=== PATIENT | female | born 1955 | race Caucasian/White ===

== ENCOUNTER 2024-11-24 12:20 | Inpatient (IN) | payer MEDICARE, OTHER, SELFPAY ==
[2024-11-24] VITALS (25 sets, daily range): BP systolic 124–167; BP diastolic 63–97; PULSE 74–96; RESP 16; TEMP 36.5–37; O2SAT 91–100; BMI 23.0
--- NOTE | 2024-11-24 12:47 | ED.LOWEXIN ---
HPI - Extremity Injury (Lower) General Chief Complaint: Extremity Injury, Lower Stated Complaint: GLF - R hip pain, no deformities, no thinners Time Seen by Provider: 11/24/24 12:47 Source: patient Mode of arrival: EMS History of Present Illness HPI Narrative: Patient is a healthy 69-year-old female who presents today with left hip pain. She reports that she missed small uneven this in the ground at a store and fell directly on her left hip. She tried to catch herself with her hands but mostly her left hip parts. No head injury no loss of consciousness no neck pain. She is not on anti platelet or anticoagulation medications. Related Data Allergies Allergy/AdvReac Type Severity Reaction Status Date / Time Penicillins Allergy Severe Abdominal Verified 11/24/24 12:31 Pain Sulfa (Sulfonamide Allergy Severe Rash Verified 11/24/24 12:31 Antibiotics) Patient History Social History Smoking Status: Never smoker Smoking Status: Never smoker Exam Initial Vital Signs Initial Vital Signs: Vital Signs Temperature 98.6 F 11/24/24 12:30 Pulse Rate 81 11/24/24 12:30 Respiratory Rate 16 11/24/24 12:30 Blood Pressure 150/84 H 11/24/24 12:30 Pulse Oximetry 98 11/24/24 12:30 Oxygen Delivery Method Room Air 11/24/24 12:30 GENERAL: Alert well-appearing 69-year-old female and in no acute distress. HEENT: Head atraumatic,EOMI, pupils reactive, face symmetric, moist mucous membranes CARDIOVASCULAR: Regular rate and rhythm without murmurs, rubs or gallops. RESPIRATORY: Breath sounds equal bilaterally, no wheezes rales or rhonchi. ABDOMEN: Soft, nontender. Normoactive bowel sounds all 4 quadrants. No guarding or rebound. EXTREMITIES: Normal range of motion, no clubbing or edema. Neurovascularly intact Left hip tender with flexion legs are of equal length distal pedal pulse intact NEUROLOGICAL: Alert and oriented x4. Neurovascularly intact SKIN: Warm, dry, no laceration, no petechiae, no rashes or lesions. Course Orders Ordered: ED Orders 11/24/24 12:54 XR hip w pel LT 2V Stat 11/24/24 13:00 CBC Auto Diff [Complete Blood Count AUTO DIFF] Stat CMP [Comprehensive Metabolic Panel] Stat 11/24/24 13:47 CT pelvis wo con Stat 11/25/24 11:15 XR C-arm up to 60 min Stat Discontinued Medications Hydromorphone HCl (Hydromorphone Hcl 0.5 Mg/0.5 Ml Syringe) 0.5 mg IV NOW ONE Stop: 11/24/24 15:16 Last Admin: 11/24/24 15:40 Dose: 0.5 mg Vital Signs Vital signs: Vital Signs - 8 hr 11/24/24 12:30 11/24/24 12:47 11/24/24 12:47 Temperature 98.6 F 97.7 F Pulse Rate 81 78 Respiratory Rate 16 16 Blood Pressure 150/84 H 160/90 H Pulse Oximetry 98 96 Oxygen Delivery Method Room Air Room Air MDM - Extremity Injury (Lower) Lab Data 11/24/24 13:00 11/24/24 13:00 Labs: Lab Results 11/24/24 Range/Units 13:00 WBC 6.6 (4.5-11.0) X10^3/uL RBC 4.66 (4.0-5.2) X10^6/uL Hgb 14.1 (12.0-16.0) g/dL Hct 41.3 (36-46) % MCV 88.5 (80-100) fL MCH 30.4 (26-34) PG MCHC 34.3 (30-36) % RDW 13.3 (11.6-14.8) % Plt Count 221 (150-400) X10^3/uL Neut % (Auto) 65.0 (50-75) % Lymph % (Auto) 23.2 L (25-40) % [place] % (Auto) 7.2 (3-14) % Eos % (Auto) 3.2 (2-4) % Baso % (Auto) 1.4 (0-2) % Neut # (Auto) 4300 (8945-4680) /uL Lymph # (Auto) 1500 (7877-4806) /uL [place] # (Auto) 500 (0-900) /uL Eos # (Auto) 200 (0-450) /uL Baso # (Auto) 100 (0-100) /uL Sodium 133 L (137-145) mmol/L Potassium 3.9 (3.4-5.1) mmol/L Chloride 98 (98-107) mmol/L Carbon Dioxide 27 (22-32) mmol/L BUN 18 H (7-17) mg/dL Creatinine 0.67 (0.52-1.04) mg/dL Estimated GFR > 60 (>60) mL/min BUN/Creatinine Ratio 26.9 H (6-22) Glucose 95 (70-99) mg/dL Calcium 9.4 (8.4-10.2) mg/dL Total Bilirubin 0.6 (0.2-1.3) mg/dL AST 34 (14-36) IU/L ALT 36 H (<35) IU/L Alkaline Phosphatase 45 (38-126) U/L Total Protein 7.3 (6.3-8.2) g/dL Albumin 4.4 (3.5-5.0) g/dL Globulin 2.9 (1.7-4.1) g/dL Albumin/Globulin Ratio 1.5 (1.0-2.8) Imaging Data CT scan - abdomen/pelvis: Radiologist's Impression: PROCEDURE: CT PEL WO CON INDICATIONS: possible fracture left side TECHNIQUE: Noncontrast 3 mm axial sections acquired through the bony pelvis, with coronal and sagittal reformatting. COMPARISON: [facility], , XR HIP W PEL LT 2V, 11/24/2024, 12:52. FINDINGS: Image quality: Excellent. Bones: Nondisplaced mildly comminuted intertrochanteric fracture of the left proximal femur corresponding to the radiographic abnormality. Postsurgical changes again seen at the right proximal femur. Pelvic bones and sacrum appear to be intact. Generalized bony demineralization is noted. Severe right hip osteoarthrosis. Opzp-up-atrnwqyw degenerative changes in the left hip. Soft tissues: No significant left hip effusion. Soft tissue edema is seen surrounding the left proximal femur at the fracture site. No significant hematoma identified. Small fat containing right inguinal hernia. Pelvic soft tissues demonstrate no acute abnormality. The musculature surrounding the hips is age-appropriate in bulk. IMPRESSION: Nondisplaced mildly comminuted intra-articular fracture of the left proximal femur. Approved by: Blas Diez M.D. on 11/24/2024 at 15:00 Extremity x-ray #1: Radiologist's Impression: PROCEDURE: XR HIP W PEL IF DONE LT 2V INDICATIONS: Fall on L hip TECHNIQUE: AP pelvis with lateral view of the left hip. COMPARISON: None. FINDINGS: Bones: Subtle linear cortical lucency at the anterior femoral cortex seen on lateral view only. Postsurgical changes from right proximal femoral fixation with intact hardware. Severe joint space narrowing in the right hip. Generalized bony demineralization. Pelvic ring appears intact. No suspicious bony lesions. Soft tissues: The visualized bowel gas pattern is normal. No suspicious soft tissue calcifications. IMPRESSION: Possible subtle nondisplaced intertrochanteric or subtrochanteric fracture of the left femur seen on one view only. Consider CT or MRI for further evaluation. Approved by: Blas Diez M.D. on 11/24/2024 at 13:42 MDM Narrative Medical decision making narrative: Patient is a very healthy 69-year-old female presenting today after mechanical ground level fall and left hip pain. She is found to have minimal displacement intertrochanteric fracture. Initially had no pain but upon any kind of movement has pretty excruciating pain. Neurovascularly intact. Blood work does not show any significant abnormalities Dr. Jo, Ortho, updated on patient's symptoms test results this is likely OR tomorrow Dr. Pizarro happily accepts Discharge Plan Departure Patient Disposition: Admitted As Inpatient Clinical Impression: Closed hip fracture
--- NOTE | 2024-11-24 12:54 | DI.RAD.S_ITS ---
PROCEDURE: XR HIP W PEL IF DONE LT 2V INDICATIONS: Fall on L hip TECHNIQUE: AP pelvis with lateral view of the left hip. COMPARISON: None. FINDINGS: Bones: Subtle linear cortical lucency at the anterior femoral cortex seen on lateral view only. Postsurgical changes from right proximal femoral fixation with intact hardware. Severe joint space narrowing in the right hip. Generalized bony demineralization. Pelvic ring appears intact. No suspicious bony lesions. Soft tissues: The visualized bowel gas pattern is normal. No suspicious soft tissue calcifications. IMPRESSION: Possible subtle nondisplaced intertrochanteric or subtrochanteric fracture of the left femur seen on one view only. Consider CT or MRI for further evaluation. Approved by: Blas Diez M.D. on 11/24/2024 at 13:42
--- NOTE | 2024-11-24 13:02 | PC.NURSE ---
Pt presents via ambulance after she tripped and fell at a store while shopping. Pt reports she fell on her L hip and tried to break her fall with her hands. Some scrapes on lower palms from trying to break her fall. Pt reports her pain in L hip is 0 wehn immobilized but shoots up when she moves. Pt also told this magnetic tape typewriter operator that she has hx of breaking her R hip in college and has 4, 7in titanium pins in her R femur holding it together.
[2024-11-24 13:15] LABS: Add Manual Diff / Slide Review NO; Hematocrit 41.3 % (36-46); Hemoglobin 14.1 g/dL (12.0-16.0); Lymphocytes Absolute Auto 1500 /uL (1100-4500); Mean Corpuscular HGB Conc 34.3 % (30-36); Mean Corpuscular Hemoglobin 30.4 PG (26-34); Mean Corpuscular Volume 88.5 fL (80-100); Platelet Count 221 X10^3/uL (150-400)
[2024-11-24 13:28] LABS: Alanine Aminotransferase 36 IU/L (<35); Albumin 4.4 g/dL (3.5-5.0); Albumin Globulin Ratio 1.5 (1.0-2.8); Alkaline Phosphatase 45 U/L (38-126); Blood Urea Nitrogen 18 mg/dL (7-17); Calcium 9.4 mg/dL (8.4-10.2); Carbon Dioxide 27 mmol/L (22-32); Chloride 98 mmol/L (98-107); Estimated Glomerular Filt Rate > 60 mL/min (>60); Globulin 2.9 g/dL (1.7-4.1); Glucose 95 mg/dL (70-99); HEMOLYSIS < 15 (0-50); Potassium 3.9 mmol/L (3.4-5.1); Sodium 133 mmol/L (137-145); Total Protein 7.3 g/dL (6.3-8.2)
--- NOTE | 2024-11-24 13:47 | DI.CT.S_ITS ---
PROCEDURE: CT PEL WO CON INDICATIONS: possible fracture left side TECHNIQUE: Noncontrast 3 mm axial sections acquired through the bony pelvis, with coronal and sagittal reformatting. COMPARISON: [facility], CR, XR HIP W PEL LT 2V, 11/24/2024, 12:52. FINDINGS: Image quality: Excellent. Bones: Nondisplaced mildly comminuted intertrochanteric fracture of the left proximal femur corresponding to the radiographic abnormality. Postsurgical changes again seen at the right proximal femur. Pelvic bones and sacrum appear to be intact. Generalized bony demineralization is noted. Severe right hip osteoarthrosis. Qqry-ur-tguvgwpw degenerative changes in the left hip. Soft tissues: No significant left hip effusion. Soft tissue edema is seen surrounding the left proximal femur at the fracture site. No significant hematoma identified. Small fat containing right inguinal hernia. Pelvic soft tissues demonstrate no acute abnormality. The musculature surrounding the hips is age-appropriate in bulk. IMPRESSION: Nondisplaced mildly comminuted intra-articular fracture of the left proximal femur. Approved by: Blas Diez M.D. on 11/24/2024 at 15:00
--- NOTE | 2024-11-24 16:30 | P.HP_ITS ---
History of Present Illness History of Present Illness Date Patient Seen: 11/24/24 Chief complaint: GLF - R hip pain, no deformities, no thinners Narrative: Summary: The patient was a 69-year-old female who had a ground level fall with subsequent hip pain. In the ED she was found to have an intertrochanteric hip fracture. S: She was comfortable with her current pain medications. She was a distant history of a right femur fracture. She also notes some degree of left hip osteoarthritis over the past several years. She wonders about the condition of the actual hip joint for her ORIF. She denies any other acute complaints and has no other active medical history other than being treated for bladder cancer. She recently moved from [place] to [place]. 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 [facility] Social History household members: spouse Smoking Status: Never smoker Meds Home Medications and Allergies Allergies Allergy/AdvReac Type Severity Reaction Status Date / Time Penicillins Allergy Severe Abdominal Verified 11/24/24 12:31 Pain Sulfa (Sulfonamide Allergy Severe Rash Verified 11/24/24 12:31 Antibiotics) Review of Systems Review of Systems Narrative: All else reviewed and otherwise unremarkable except as noted in the history and physical. Exam Vital Signs (past 8 hours): - 11/24/24 12:30 11/24/24 12:47 11/24/24 12:47 Temperature 98.6 F 97.7 F Pulse Rate 81 78 Respiratory Rate 16 16 Blood Pressure 150/84 H 160/90 H Pulse Oximetry 98 96 Oxygen Delivery Method Room Air Room Air Oxygen Delivery Method Room Air Narrative Exam Narrative: NAD, alert and oriented, fluent speech, calm. Normocephalic skull, EOMI, anicteric sclera, symmetric pupils. Oropharynx unremarkable, no droop. Neck supple, midline trachea, no adenopathy. Lungs clear, normal rate and effort. Heart regular, no murmur gallop or rub. Abdomen is soft, non distended and non tender. Extremities are free of edema. Skin is free of rash or lesions. Joints are not swollen or deformed. Judgment appears to be normal. Objective Imaging Multiple studies:: Radiologist's impression: Pelvis CT: Nondisplaced mildly comminuted intra-articular fracture of the left proximal femur. Hip x-ray: Possible subtle nondisplaced intertrochanteric or subtrochanteric fracture of the left femur seen on one view only. Consider CT or MRI for further evaluation. Labs 11/24/24 13:00 11/24/24 13:00 Labs: Laboratory Results - last 24 hr 11/24/24 13:00 WBC 6.6 RBC 4.66 Hgb 14.1 Hct 41.3 MCV 88.5 MCH 30.4 MCHC 34.3 RDW 13.3 Plt Count 221 Neut % (Auto) 65.0 Lymph % (Auto) 23.2 L [place] % (Auto) 7.2 Eos % (Auto) 3.2 Baso % (Auto) 1.4 Neut # (Auto) 4300 Lymph # (Auto) 1500 [place] # (Auto) 500 Eos # (Auto) 200 Baso # (Auto) 100 Sodium 133 L Potassium 3.9 Chloride 98 Carbon Dioxide 27 BUN 18 H Creatinine 0.67 Estimated GFR > 60 BUN/Creatinine Ratio 26.9 H Glucose 95 Calcium 9.4 Total Bilirubin 0.6 AST 34 ALT 36 H Alkaline Phosphatase 45 Total Protein 7.3 Albumin 4.4 Globulin 2.9 Albumin/Globulin Ratio 1.5 Assessment & Plan Assessment & Plan narrative: 1. Left intertrochanteric hip fracture (oathologic secondary to osteoporosis), active. 2. Bladder cancer, stable. PLAN: -ortho consulted, NPO midnight. -anticipate operative repair on November 24. -DVT prophylaxis after we will be aspirin b.i.d.. Anticipate 2 midnights in the hospital, supports inpatient status Full resuscitation. Time-Based Coding :: 35 min spent with patient and on the chart (including review of chart, obtaining history, exam, reviewing outside data, placing orders, documenting exam and treatment plan, and counseling patient) on 11/24. Quality MIPS - Admit I confirm the patient?s Advance Care Plan is present, Code status is documented, Surrogate decision maker is in patient?s record [If Yes, STOP here]: Yes MIPS - Meds 'Current medications' to include all prescriptions, [id number] products, herbals, cannabis/cannabidiol products, and vitamin/mineral/dietary (nutritional) supplements. I have utilized all available resources to obtain, update, or review the patient?s current medications. [If Yes, STOP here]: Yes
--- NOTE | 2024-11-24 16:50 | CM.DANOTE ---
DCP Assessment Note: Pt is a 69yo female, resident of [place], is admitted for closed hip fx after a GLF. Pt lives in a house with her , Stan. Pt's Primary Care Provider is Dr. Loretta Camarillo ([facility]) and insurance is Medicare. Reviewed chart and discussed with multidisciplinary team pt's medical status and initial discharge needs. Per ED Provider, hospitalist has accepted with Ortho Surgery consulted for possible surgery on 11/25/24. DCP met w/patient at bedside; introduced self and role. Patient was found in bed, alert and oriented, cooperative with assessment. Pt confirmed living situation and good support in . Pt expressed preference in discharge home after surgery if cleared. Pt has a hx of hip surgery approximately 30 years ago but no history of SNF Rehab or home health. Pt agreeable to working with therapies and following their recommendations. Plan: Acute care admission, anticipating discharge home with spouse when cleared. CM team will follow closely for coordination of discharge plans. Thi Gill [facility] Discharge Planning/Care Management CM Discharge Assessment Start: 11/24/24 16:44 Freq: Status: Active Protocol: Document 11/24/24 16:44 MW (Rec: 11/24/24 16:50 MW [id number]) Discharge Planning Assessment Assigned Discharge LARS Ness Force Adjustment Supervisor Provider Dr. Loretta Camarillo, (Family Medicine at [facility]) Insurance Medicare DPOA/Assigned Stan Alaniz, Spouse Designee Name Contact Information [phone] Advance Directives? No History Provided By Patient,Family Member,Medical Record Has Patient been No admitted in last 30 days? Prior Living House Arrangements Comment [place] Household Members spouse Type of Drives own vehicle transporation used prior to admit Independent with ADL Yes 's Is patient alert and Yes oriented? Discharge Plan Home Review Status In Process Please Provide Date 11/24/24 Initial DC Assessment Was Performed Next Review Type Continued Stay Review
--- NOTE | 2024-11-24 20:55 | P.HP_ITS ---
History of Present Illness History of Present Illness Date Patient Seen: 11/24/24 Time Patient Seen: 06:15 Date of Onset of Symptoms: 11/24/24 Chief complaint: GLF - R hip pain, no deformities, no thinners Narrative: 69-year-old healthy female with left hip pain after a ground level fall. She fell onto her left side after tripping. She denies prior pain. She was brought in by ambulance to the emergency room. [facility] Social History household members: spouse Smoking Status: Never smoker Meds Home Medications and Allergies Allergies Allergy/AdvReac Type Severity Reaction Status Date / Time Penicillins Allergy Severe Abdominal Verified 11/24/24 12:31 Pain Sulfa (Sulfonamide Allergy Severe Rash Verified 11/24/24 12:31 Antibiotics) Exam Vital Signs (past 8 hours): - 11/24/24 13:11 11/24/24 13:30 11/24/24 14:00 Pulse Rate 79 77 75 Blood Pressure Pulse Oximetry 97 96 96 11/24/24 14:31 11/24/24 14:32 11/24/24 14:32 Pulse Rate 84 77 Blood Pressure 156/93 H Pulse Oximetry 98 98 11/24/24 15:00 11/24/24 15:00 11/24/24 15:30 Pulse Rate 82 80 Blood Pressure 135/85 Pulse Oximetry 96 96 11/24/24 15:30 11/24/24 16:00 11/24/24 16:00 Pulse Rate 74 Blood Pressure 145/89 H 149/89 H Pulse Oximetry 93 11/24/24 16:30 11/24/24 16:30 11/24/24 17:00 Pulse Rate 79 82 Blood Pressure 167/97 H Pulse Oximetry 96 98 11/24/24 17:00 11/24/24 17:30 11/24/24 17:30 Pulse Rate 84 Blood Pressure 158/94 H 154/96 H Pulse Oximetry 97 11/24/24 18:00 11/24/24 18:00 11/24/24 18:30 Pulse Rate 88 94 H Blood Pressure 142/87 H Pulse Oximetry 98 98 11/24/24 18:30 Pulse Rate Blood Pressure 143/86 H Pulse Oximetry Oxygen Delivery Method Room Air Narrative Exam Narrative: physical exam reveals a 69-year-old female in no acute distress Examination of her left hip demonstrates that her skin is intact there is a superficial abrasion at the anterior aspect of her knee. She has 5/5 tibialis anterior, gastroc soleus, EHL and FHL strength Her sensation is intact to light touch in the saphenous, sural, tibial, deep peroneal and superficial peroneal nerve distributions Her left knee is nontender to palpation her left ankle is nontender to palpation. Her bilateral upper extremities are nontender to palpation. AP pelvis and CT scan demonstrate a nondisplaced intertrochanteric fracture of the left hip Objective Labs 11/24/24 13:00 11/24/24 13:00 Labs: Laboratory Results - last 24 hr 11/24/24 13:00 WBC 6.6 RBC 4.66 Hgb 14.1 Hct 41.3 MCV 88.5 MCH 30.4 MCHC 34.3 RDW 13.3 Plt Count 221 Neut % (Auto) 65.0 Lymph % (Auto) 23.2 L [place] % (Auto) 7.2 Eos % (Auto) 3.2 Baso % (Auto) 1.4 Neut # (Auto) 4300 Lymph # (Auto) 1500 [place] # (Auto) 500 Eos # (Auto) 200 Baso # (Auto) 100 Sodium 133 L Potassium 3.9 Chloride 98 Carbon Dioxide 27 BUN 18 H Creatinine 0.67 Estimated GFR > 60 BUN/Creatinine Ratio 26.9 H Glucose 95 Calcium 9.4 Total Bilirubin 0.6 AST 34 ALT 36 H Alkaline Phosphatase 45 Total Protein 7.3 Albumin 4.4 Globulin 2.9 Albumin/Globulin Ratio 1.5 Assessment & Plan Assessment and plan (1) Closed intertrochanteric fracture of left hip: Qualifiers: Encounter type: initial encounter Fracture alignment: nondisplaced Q ualified Code(s): S72.145A - Nondisplaced intertrochanteric fracture of left femur, initial encounter for closed fracture Status: Acute Assessment & Plan narrative: I discussed the risks, benefits and alternatives of surgical versus nonsurgical treatment with the patient risks of surgery include damage to arteries, veins, nerves, need for additional surgery, risks of infection, risks of blood clots, risks of blood transfusions, risks of malunion and nonunion and also risks with anesthesia. I also discussed the risks of nonoperative treatment to include inability to walk and risks of blood clots and pneumonia associated with that. I answered all the patient's questions and consented for her foot for operative fixation of her left hip. - NPO after midnight for operative fixation of left hip fracture on 11/25/2024 - Postoperatively patient will be weight-bearing as tolerated with crutches and / or walker Time-Based Coding :: [TOTAL MINUTES] spent with patient and on the chart (including review of chart, obtaining history, exam, reviewing outside data, placing orders, documenting exam and treatment plan, and counseling patient) on [DATE]. [employer]er Document charge(s): No
--- NOTE | 2024-11-24 20:58 | PC.NURSE ---
Pt sitting in ED stretcher watching video on computer at this time. No distress noted at this time. Pt states comfortable at this time except for gas pain and requests [place] which Dr. Parikh gives verbal ok for. Pt states increased pain in hip only with movement. Plan of care discussed with pt and she agrees. No other requests or complaints at this time. Pt remains connected to blood pressure and pulse ox monitors with alarms on and audible. Call light within reach.
[2024-11-24] MEDS: SIMETHICONE 80 MG TABLET PO (21:31)
[2024-11-25] VITALS (26 sets, daily range): BP systolic 116–177; BP diastolic 67–92; PULSE 77–97; RESP 12–25; TEMP 35.6–37; O2SAT 88–99; BMI 23.0
--- NOTE | 2024-11-25 | DI.RAD.S_ITS ---
PROCEDURE: XR HIP W PEL IF DONE LT 2V INDICATIONS: ORIF LEFT HIP TECHNIQUE: 4 intraoperative fluoroscopic view(s) of the hip acquired. COMPARISON: [facility], CR, XR HIP W PEL LT 2V, 11/24/2024, 12:52. FINDINGS: Bones: Intraoperative fluoroscopic images shows ORIF of left proximal femur with intramedullary namita and surgical screws in place. Left hip alignment is anatomic. IMPRESSION: Fluoro guidance was provided intraoperatively for ORIF of left proximal femur performed by ordering physician. Dictated by: Caleb Bui M.D. on 11/25/2024 at 13:17 Approved by: Caleb Bui M.D. on 11/25/2024 at 13:17
[2024-11-25] MEDS: ACETAMINOPHEN 325 MG TABLET 650 MG PO (00:48)
[2024-11-25] MEDS: LACTATED RINGERS 1,000 ML 42 ML IV ×3 (00:48→12:19)
[2024-11-25] MEDS: ACETAMINOPHEN IV 1,000 MG/100 ML VIAL 400 MG IV ×2 (01:25→13:38)
[2024-11-25 04:37] LABS: Add Manual Diff / Slide Review NO; Hematocrit 37.3 % (36-46); Hemoglobin 13.2 g/dL (12.0-16.0); Lymphocytes Absolute Auto 1700 /uL (1100-4500); Mean Corpuscular HGB Conc 35.4 % (30-36); Mean Corpuscular Hemoglobin 30.9 PG (26-34); Mean Corpuscular Volume 87.4 fL (80-100); Platelet Count 176 X10^3/uL (150-400)
[2024-11-25 04:53] LABS: Blood Urea Nitrogen 15 mg/dL (7-17); Calcium 8.9 mg/dL (8.4-10.2); Carbon Dioxide 26 mmol/L (22-32); Chloride 100 mmol/L (98-107); Estimated Glomerular Filt Rate > 60 mL/min (>60); Glucose 93 mg/dL (70-99); HEMOLYSIS < 15 (0-50); Potassium 3.9 mmol/L (3.4-5.1); Sodium 132 mmol/L (137-145)
--- NOTE | 2024-11-25 07:10 | P.PN_ITS ---
Subjective Subjective Interval history: Summary: The patient was a 69-year-old female who had a ground level fall with subsequent hip pain. In the ED she was found to have an intertrochanteric hip fracture. ED: Ortho consulted. S: Status post ORIF, did not get a spinal. She was having a fair amount of pain which is refractory to 0.5 mg of Dilaudid. She was otherwise doing well. O: NAD, alert and oriented. Fluent speech. Lungs are clear, normal rate and effort. Heart is regular, no murmur gallop or rub. Abdomen is soft, non distended. Extremities are free of edema. A/P: 1. Left intertrochanteric hip fracture (oathologic secondary to osteoporosis), active. 2. Bladder cancer, stable. PLAN: -status post ORIF, significant pain. -increase Dilaudid to 1 mg q.2 hours as needed pain. -DVT prophylaxis after we will be aspirin b.i.d.. Anticipate 2 midnights in the hospital, supports inpatient status Full resuscitation. Exam Vital Signs (past 8 hours): - 11/25/24 00:00 Temperature 97.3 F L Pulse Rate 78 Respiratory Rate 20 Blood Pressure 126/87 Pulse Oximetry 97 Oxygen Flow Rate 0 Oxygen Delivery Method Room Air Oxygen Flow Rate 0 Objective Labs 11/25/24 04:24 11/25/24 04:24 Labs: Laboratory Results - last 24 hr 11/24/24 11/25/24 13:00 04:24 WBC 6.6 6.9 RBC 4.66 4.27 Hgb 14.1 13.2 Hct 41.3 37.3 MCV 88.5 87.4 MCH 30.4 30.9 MCHC 34.3 35.4 RDW 13.3 13.2 Plt Count 221 176 Neut % (Auto) 65.0 63.5 Lymph % (Auto) 23.2 L 24.3 L [place] % (Auto) 7.2 8.5 Eos % (Auto) 3.2 2.9 Baso % (Auto) 1.4 0.8 Neut # (Auto) 4300 4400 Lymph # (Auto) 1500 1700 [place] # (Auto) 500 600 Eos # (Auto) 200 200 Baso # (Auto) 100 100 Sodium 133 L 132 L Potassium 3.9 3.9 Chloride 98 100 Carbon Dioxide 27 26 BUN 18 H 15 Creatinine 0.67 0.63 Estimated GFR > 60 > 60 BUN/Creatinine Ratio 26.9 H 23.8 H Glucose 95 93 Calcium 9.4 8.9 Total Bilirubin 0.6 AST 34 ALT 36 H Alkaline Phosphatase 45 Total Protein 7.3 Albumin 4.4 Globulin 2.9 Albumin/Globulin Ratio 1.5 PFS Social History household members: spouse Smoking Status: Former smoker Assessment & Plan Time-Based Coding :: [TOTAL MINUTES] spent with patient and on the chart (including review of chart, obtaining history, exam, reviewing outside data, placing orders, documenting exam and treatment plan, and counseling patient) on [DATE].
--- NOTE | 2024-11-25 10:44 | PM.PREOP ---
Pre-operative Note COVID-19 COVID-19 status: Not tested Interval Note History & Physical reviewed/Exam performed by Physician: Yes Changes to H&P: No
[2024-11-25] MEDS: TRANEXAMIC ACID 1,000 MG VIAL 1000 MG INJ (11:58)
--- NOTE | 2024-11-25 13:18 | PM.OP.1 ---
Operative Date/Time/Diagnoses Date of procedure: 11/25/24 Time of procedure: 11:51 Pre-op diagnosis: left intertrochanteric hip fracture Post-op diagnosis: same Procedure & Clinicians Procedure: Operative fixation of left intertrochanteric hip fracture Same procedure(s) as scheduled: Yes Surgeon: Margaret Jo Assisted?: No Anesthesia Type: General Operative Notes Findings: left intertrochanteric hip fracture Closure Type: primary Specimen(s): none sent Prosthetic devices, grafts, tissues, transplants, or devices: 1. Tri Gen InterTAN nail. 10 mm x 18 cm 125 degree 2. Tri Gen InterTAN integrated interlocking lag screw 95 mm lag screw and 90 mm compression screw 3. Tri Gen 5.0 mm x 30 mm inter locking screw Applied: none Estimated Blood Loss (mL): 100 Blood products transfused: none Procedure in detail: The patient was met in the preoperative hold area the left hip was signed as the correct extremity. Patient was anesthetized on the hospital bed and the patient was then transferred to [place] table. All bony prominences were padded. The patient was placed in traction boots that were well-padded. Fluoroscopic images were obtained demonstrating a reduced intertrochanteric hip fracture. Patient was prepped and in the standard sterile fashion a time-out was performed confirming the correct patient correct procedure correct extremity at initials on the operative site. 2 g of Ancef given to the patient. An incision was made proximal to greater trochanter. Dissection was taken to the greater trochanter and the guidewire was placed under fluoroscopic guidance. Next the opening Reamer was placed over the guidewire down to the lesser trochanter. A 10 mm nail was chosen and then placed. The guidewire for the femoral screw was then placed relatively center center within the femoral head. Tri Gen inter valencia integrated interlocking lag screws were then placed using fluoroscopic guidance. I ensure the reduction was maintained. I then placed the distal interlocking screw. This measured 5.0 mm x 30 mm. Using fluoroscopic imaging the reduction and implants were evaluated and the wounds were copiously irrigated. The wounds were closed with 0 Vicryl, 2-0 Vicryl and carlyn. A total of 20 cc has a similar thing was infiltrated incision site. Patient was awoken taken PACU in stable condition. Complications: none Post-operative Condition: stable Disposition: PACU Plan for aftercare: Admit for PT, pain control and ambulation F/u in 2 weeks for staple removal Weightbearing as tolerated
[2024-11-25] MEDS: ONDANSETRON 4 MG/2 ML INJ IV (13:23)
--- NOTE | 2024-11-25 17:24 | PC.NURSE ---
Patient transported off unit at approximately 1030 a.m via bed to Pre-op area. She returned to room 208 via bed at approximately 1430 this afternoon. She initially complains of paiin 8/. Hospitalist at bedside evalutating patient, increased dose for prn pain medication. Aquacel to L hip c/d/i. SCD's placed. Prieto catheter in place. POSTOP VS per routine, continuous pulse ox, bed alarm, SCD's, call light in reach. Continuous monitoring.
[2024-11-25] MEDS: ASPIRIN EC 81 MG TABLET PO (21:10)
[2024-11-26 04:35] LABS: Add Manual Diff / Slide Review NO; Hematocrit 35.5 % (36-46); Hemoglobin 12.5 g/dL (12.0-16.0); Lymphocytes Absolute Auto 1100 /uL (1100-4500); Mean Corpuscular HGB Conc 35.1 % (30-36); Mean Corpuscular Hemoglobin 30.9 PG (26-34); Mean Corpuscular Volume 87.9 fL (80-100); Platelet Count 187 X10^3/uL (150-400)
[2024-11-26 04:48] LABS: Blood Urea Nitrogen 13 mg/dL (7-17); Calcium 8.6 mg/dL (8.4-10.2); Carbon Dioxide 26 mmol/L (22-32); Chloride 101 mmol/L (98-107); Estimated Glomerular Filt Rate > 60 mL/min (>60); Glucose 123 mg/dL (70-99); HEMOLYSIS < 15 (0-50); Potassium 4.4 mmol/L (3.4-5.1); Sodium 130 mmol/L (137-145)
--- NOTE | 2024-11-26 07:53 | PM.PN.1 ---
Subjective Subjective Interval history: Summary: Admitted with a fall and a hip fracture. Status post ORIF on November 25. S: He was able to walk about 5 steps twice today with therapies. Having a lot of pain and gait instability. Otherwise she was doing well. Constipated. O: NAD, alert and oriented. Fluent speech. Lungs are clear, normal rate and effort. Heart is regular, no murmur gallop or rub. Abdomen is soft, non distended. Extremities are free of edema. A/P: 1. Left intertrochanteric hip fracture (oathologic secondary to osteoporosis), active. 2. Bladder cancer, stable. PLAN: -status post ORIF 11/25. -Stop IV pain meds. -DVT prophylaxis after we will be aspirin b.i.d.. -PT -Discharge planning. Anticipate 2 midnights in the hospital, supports inpatient status Full resuscitation. Exam Vital Signs (past 8 hours): - 11/25/24 23:56 Temperature 97.2 F L Pulse Rate 91 H Respiratory Rate 16 Blood Pressure 123/72 Pulse Oximetry 94 Oxygen Flow Rate 0 Oxygen Delivery Method Nasal Cannula Oxygen Flow Rate 0 Objective Labs 11/26/24 04:20 11/26/24 04:20 Labs: Laboratory Results - last 24 hr 11/26/24 04:20 WBC 10.9 D RBC 4.04 Hgb 12.5 Hct 35.5 L MCV 87.9 MCH 30.9 MCHC 35.1 RDW 13.2 Plt Count 187 Neut % (Auto) 83.5 H D Lymph % (Auto) 10.5 L [place] % (Auto) 5.8 Eos % (Auto) 0.1 L Baso % (Auto) 0.1 Neut # (Auto) 9100 H Lymph # (Auto) 1100 [place] # (Auto) 600 Eos # (Auto) 0 Baso # (Auto) 0 Sodium 130 L Potassium 4.4 Chloride 101 Carbon Dioxide 26 BUN 13 Creatinine 0.70 Estimated GFR > 60 BUN/Creatinine Ratio 18.6 Glucose 123 H Calcium 8.6 PFSH Social History household members: spouse Smoking Status: Former smoker Assessment & Plan Time-Based Coding :: [TOTAL MINUTES] spent with patient and on the chart (including review of chart, obtaining history, exam, reviewing outside data, placing orders, documenting exam and treatment plan, and counseling patient) on [DATE].
[2024-11-26 08:00] VITALS: BP 140/77; PULSE 81; RESP 12; TEMP 36.3; O2SAT 97
[2024-11-26] MEDS: LOSARTAN 25 MG TABLET PO (09:21)
[2024-11-26] MEDS: ACETAMINOPHEN 325 MG TABLET 650 MG PO ×2 (09:21→19:53)
[2024-11-26] MEDS: ASPIRIN EC 81 MG TABLET PO ×2 (09:22→20:18)
--- NOTE | 2024-11-26 10:00 | PT.IIE ---
Current Diagnoses Nondisplaced intertrochanteric fracture of left femur, initial encounter for closed fracture (11/24/24) Surgery Performed Operation Date: 11/25/24 11:15 Actual Procedures p Intramedullary Nailing Femur(Left) - Margaret Jo, DO Physical Therapy Inpatient Evaluation/Re-Eval M1 PT/OT-IP Prior Functional Status Start: 11/26/24 12:46 Freq: NEEDED Status: Active Protocol: Document 11/26/24 10:00 AB (Rec: 11/26/24 13:00 AB [id number]) Medical Review Prior Functional Status Medical History Yes Reviewed Communication able to make needs known Mobility and Gait pt stated that she was independent with all mobilities and ambulation without AD Social History Household Members spouse Living Arrangements House Number of Floors ( Two Floors Floors) Number of Stairs To pt may stay on main level of the house: 8+8 steps Enter/Railing? without rails to go to 2nd floor no steps to enter Home Environment High Toilet,Tub/Shower Home Equipment Shower Seat without Backrest,Hand Held Shower Additional Social pt stated that spouse will need to go back to [place] History Comment and pt will not have assistance at home M2 PT-IP Current Condition Start: 11/26/24 12:46 Freq: NEEDED Status: Active Protocol: Document 11/26/24 10:00 AB (Rec: 11/26/24 13:00 AB [id number]) Physical Therapy Current Condition Current Condition Evaluation Date 11/26/24 Treatment Diagnosis L hip fx s/p ORIF; difficulty in walking Onset Date 11/24/24 M3 PT-IP Subjective Start: 11/26/24 12:46 Freq: NEEDED Status: Active Protocol: Document 11/26/24 10:00 AB (Rec: 11/26/24 13:00 AB [id number]) Subjective Physical Therapy Visit Type Type Initial Evaluation Visit Start Time 10:00 Visit Stop Time 10:45 Number of PERSONAL CONSULTANT Visits 0 Physical Therapy Visit Comments Patient Comments agreeable to do PT Therapy Pain Assessment Pain When Pain Assessed At Rest Pain Present Pain Present Pain Reported Location left hip Intensity 4 Scale Used increases to 8/10 with mobility Description Sharp,Tightness,With Movement Pain Behaviors Facial Grimacing,Guarding,Holding Area,Wincing Pain Management Apply Cold,Distraction,Modification of Treatment,Re- Techniques positioning,Timing of Activity with Medications M4 PT-IP Mobility and Gait Start: 11/26/24 12:46 Freq: NEEDED Status: Active Protocol: Document 11/26/24 10:00 AB (Rec: 11/26/24 13:00 AB [id number]) PT-Bed Mobility Assessment Supine to Sit Supine to Sit Maximum Assistance PT-Transfer Assessment Sit to and From Stand Sit to and from Maximum Assistance,1 Person Assistance,2 Person Stand Assistance,Use of Upper Extremities Equipment Transfer Assistive Gait Belt,Front Wheeled Walker Device Orthotic/Prosthetic No Devices or Brace: Transfers Transfer Destination Chair Transfer Technique ambulated Transfer Ability Level of Assist Maximum Assistance,1 Person Assistance,2 Person Assistance,Use of Upper Extremities Comments Mobility Comments pt in bed and agreeable to do PT. obtained PLOF and home set up. BP: 159/80 O2 sat: 98% . LLE heel slides completed prior to mobilizing. pt completed supine to sit max A and max cues. c/o increase L hip pain. c/o dizziness. BP: 149/83 sit to stand max A x 1-2 and max cues. pt ambulated using FWW ~ 15 ft max A x 1-2 and max cues. pt with increase guarding of LLE in extension and presents with difficulty moving LE forward. required max cues and assist to weight shift. pt sat on the chair. positioned pt on the chair. call light and table placed within reach. post-op folder provided. informed pt regarding acute rehab vs SNF and pt agreed. Gait Assessment Gait Gait Assistance Maximum Assistance,1 Person Assist,2 Person Assist Required: Distance (Feet) 15 Able to Maintain Yes Weight Bearing Status During Gait Assistive Devices Assistive Device Gait Belt,Front Wheeled Walker Gait Deviations General Gait Pattern Antalgic,Decreased Stride Length,Decreased Feet Clearance Factors Limiting Gait Function Factors Limiting Decreased Activity Tolerance,Decreased Sensation, Gait Function Decreased Strength,Difficulty Following Directions, Incoordination,Limited Range of Motion,Pain,Poor Balance,Poor Safety Awareness PT-Balance Assessment Sitting Balance and Reactions Static Sitting Normal Balance Ability Dynamic Sitting Good Balance Ability Standing Balance and Reactions Static Standing Fair Balance Ability Dynamic Standing Poor Balance Ability Device Used FWW M5 PT-IP Objective Assessments Start: 11/26/24 12:46 Freq: NEEDED Status: Active Protocol: Document 11/26/24 10:00 AB (Rec: 11/26/24 13:00 AB [id number]) Orientation Orientation/Cognition Level of Alertness Alert Orientation Name,Age,Place,Situation Language Function No Deficits Noted Ability Safety Awareness Decreased Safety Awareness Memory Description No Deficits Noted Gross Range of Motion Lower Extremity ROM Impairments increase LLE guarding with PROM and c/o pain Strength Lower Extremity Strength Assessment Left Impaired Hip 2+/5 Knee 3+/5 Sensation Assessment Sensation Gross Sensation Right LE Impaired,Left LE Impaired Sensation Numbness Description Comments Sensation Comments B feet peripheral neuropathies Muscle Tone Muscle Tone WNL Yes M6 PT-IP Treatment Start: 11/26/24 12:46 Freq: NEEDED Status: Active Protocol: Document 11/26/24 10:00 AB (Rec: 11/26/24 13:00 AB [id number]) Physical Therapy Treatment Exercises Exercises Heel Slides Education Education Provided Precautions,Weight Bearing Status,Post-Op Packet,Safety M7 PT-IP Assessment and Plan Start: 11/26/24 12:46 Freq: NEEDED Status: Active Protocol: Document 11/26/24 10:00 AB (Rec: 11/26/24 13:00 AB [id number]) PT Summary Assessment and Plan Potential Rehabilitation Fair Potential Status of Condition Evolving at Evaluation Summary Impairments Pain,ROM,Strength,Balance,Coordination,Sensation,Tone, Cognition,Bed Mobility,Transfers,Gait,Activity Tolerance Assessment Summary pt is a 69 y/o F with GLF and sustain a L hip fx. pt underwent L hip ORIF POD 1. pt is WBAT on LLE. pt requiring max A for bed mobility, max A x 1-2 for transfers and ambulation using FWW and unable to tolerate much activity due to increase L hip pain. pt will benefit from acute rehab vs SNF rehab. will continue to assess progress. Goals Bed Mobility Goal Minimal Assistance Transfer Goal Minimal Assistance,Front Wheeled Walker Gait Goal Minimal Assistance,Front Wheel Walker Gait Distance 50 Other Goals improve bed mobility, transfers, ambulation using FWW mod I 150 ft Days to Meet Goals 10 Frequency of Treatment Other frequency 1-2x/day Treatment Plan Physical Therapy Bed Mobility Training,Transfer Training,Gait Training, Treatment Plan Therapeutic Exercise,Balance Retraining,Post Op Education,Discharge Planning,Hot or Cold Pack, Neuromuscular Re-ed,Coordination Retraining,Manual Therapy Weight Bearing Status Weight Bearing Weight Bear as Tolerated Status Allowed Weight LLE WBAT Bearing Amount ( enter % or #) (%) Recommendations To Nursing Amount of Assist 2 Person Assist Needed Discharge Recommendations PT Discharge SNF Rehab,Acute Rehab,SNF vs Acute Rehab Recommendations Equipment Needed for FWW Home Before Discharge Transportation Needs Wheelchair/Cabulance at Discharge - PT assist 1-2
[2024-11-26] MEDS: THYROID, PORK 30 MG TABLET 45 MG PO (10:31)
[2024-11-26] MEDS: TIMOLOL 0.5% OPHTH 1 DROPS EYE-BOTH (10:31)
--- NOTE | 2024-11-26 11:38 | OT.IP.EVAL ---
Current Diagnoses Nondisplaced intertrochanteric fracture of left femur, initial encounter for closed fracture (11/24/24) Surgery Performed Operation Date: 11/25/24 11:15 Actual Procedures p Intramedullary Nailing Femur(Left) - Margaret Jo, DO Occupational Therapy Inpatient Evaluation/Re-Eval M1 PT/OT-IP Prior Functional Status Start: 11/26/24 12:46 Freq: NEEDED Status: Active Protocol: Document 11/26/24 11:05 [facility] (Rec: 11/26/24 13:13 [facility] Desktop) Medical Review Prior Functional Status Medical History Yes Reviewed Communication able to make needs known Mobility and Gait pt stated that she was independent with all mobilities and ambulation without AD Activities of Daily I Living and IADL's Social History Household Members spouse Living Arrangements House Number of Floors ( Two Floors Floors) Number of Stairs To pt may stay on main level of the house: 8+8 steps Enter/Railing? without rails to go to 2nd floor no steps to enter Home Environment High Toilet,Tub/Shower Home Equipment Shower Seat without Backrest,Hand Held Shower,Avian Keeper Additional Social pt stated that spouse will need to go back to [place] History Comment and pt will not have assistance at home M2 OT-IP Current Condition Start: 11/26/24 13:03 Freq: Status: Active Protocol: Document 11/26/24 11:05 [facility] (Rec: 11/26/24 13:13 [facility] Desktop) Occupational Therapy Current Condition Current Condition Evaluation Date 11/26/24 Treatment Diagnosis S/P Left hip ORIF after GLF Diagnosis Onset Date 11/24/24 Weight Bearing Status Weight Bearing Weight Bear as Tolerated Status M3 OT- IP Subjective and Pain Start: 11/26/24 13:03 Freq: Status: Active Protocol: Document 11/26/24 11:05 [facility] (Rec: 11/26/24 13:13 [facility] Desktop) OT- Subjective Occupational Therapy Visit Type Type Initial Evaluation Visit Start Time 11:03 Visit Stop Time 11:38 Occupational Therapy Visit Comments Patient Comments Pt agreed to get up. Patient/Caregiver To go to skilled rehab. Goals OT Pain Assessment Pain When Pain Assessed At Rest Pain Present Pain Present Pain Reported Location left hip Intensity 4 Scale Used Numeric (0 - 10) M4 OT- IP ADL's Start: 11/26/24 13:03 Freq: Status: Active Protocol: Document 11/26/24 11:05 [facility] (Rec: 11/26/24 13:13 [facility] Desktop) OT [id number] General Evaluation Self-Feeding Ability Independent OT ADL-Grooming General Evaluation Grooming Ability Independent Comments OT Grooming Comments While seated. OT ADL-Oral Care General Eval Oral Care Ability Independent Comments Oral Care Comments While seated. OT ADL-Dressing General Eval Lower Body Dressing Maximum Assistance Ability Areas Needing Socks Assistance Comments OT Dressing Comments Able to go over use of educational consultant and socks aid for LB dressing needs. OT ADL-Toileting Comments OT Toileting Prieto just taken out. Pt will benefit from BSC at home. Comments OT ADL-Bathing Comments OT Bathing Comments Not performed. Pt will benefit from tub bench and HHPS. M5 OT- IP IADL's Start: 11/26/24 13:03 Freq: Status: Active Protocol: Document 11/26/24 11:05 [facility] (Rec: 11/26/24 13:13 [facility] Desktop) OT-Instrumental Activities of Daily Living Home Safety Awareness Awareness of Need Good Awareness for Assistance at Home Ability to Problem Able to Problem Solve Solve Emergency Situations Medication Management Medication No Deficits Identified Management Money Management Money Management No Deficits Identified Meal Preparation Meal Preparation Pt will need assist. 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 Comments M6 OT- IP Functional Cognition Start: 11/26/24 13:03 Freq: Status: Active Protocol: Document 11/26/24 11:05 [facility] (Rec: 11/26/24 13:13 [facility] Desktop) Cognitive Factors Limiting Selfcare Function Cognitive Ability Level of Alertness Alert Patient Orientation Name,Age,Birthday,Month,Date,Year,Day of Week,Place, Situation Attention Span Capable of Focused Attention,Capable of Sustained Ability Attention Ability to Follow Able to Follow One Step Commands Commands Cognitive Comments Cognitive Assessment Pt able to follow commands for ADL and mobility needs. Comments Pt needing encouragement and reassurance. OT- Vision and Hearing OT- Vision Assessment Vision History Cataracts Visual Acuity Glasses All The Time Visual Attentiveness WFL Occular Pursuits WFL M7 OT- IP Mobility and Balance Start: 11/26/24 13:03 Freq: Status: Active Protocol: Document 11/26/24 11:05 [facility] (Rec: 11/26/24 13:13 [facility] Desktop) OT-Transfer Assessment Sit to and From Stand Sit to and from Moderate Assistance Stand Transfers Transfer Ability Minimal Assistance Technique Transfer Destination Chair Transfer Technique Stand Step Pivot Devices Transfer Assistive Gait Belt,Front Wheeled Walker Devices Comments Mobility Comments MODA to stand to the FWW and able to slowly walk with SAUD for safety several feet before having to sit back down. OT- Balance Assessment Sitting Balance and Reactions Static Sitting Normal Balance Ability Dynamic Sitting Normal Balance Ability Standing Balance and Reactions Static Standing Fair Balance Ability Dynamic Standing Poor Balance Ability M8 OT- IP Objective Assessments Start: 11/26/24 13:03 Freq: Status: Active Protocol: Document 11/26/24 11:05 [facility] (Rec: 11/26/24 13:13 [facility] Desktop) OT Gross Range of Motion Upper Extremity Range of Motion Assessment Within Functional Limits OT Strength Upper Extremity Strength Assessment Within Functional Limits Comments Strength Comments WFL for needs. M9 OT- IP Assessment and Plan Start: 11/26/24 13:03 Freq: Status: Active Protocol: Document 11/26/24 11:05 [facility] (Rec: 11/26/24 13:13 [facility] Desktop) OT Summary Assessment and Plan Potential Rehabilitation Excellent Potential Analytic Complexity Low at Evaluation Summary OT Impairments Pain,Balance,Functional Mobility,Grooming,Dressing, Toileting,Bathing,Toilet Transfers,Shower Transfers, Activity Tolerance Progress Towards Progressing Toward Goals Goals Assessment Summary Pt low complexity and main barriers are steps, pain, and needing extensive assist to stand from lower surfaces at this time and needing assist for ADL needs. Pt will benefit from skilled rehab. Goals Self-Feeding Goal Independent Grooming Goal Independent Dressing Goal Independent,Avian Keeper,Sock Aid Toileting Goal Independent Bathing Goal Minimal Assistance Toilet Transfer Goal Independent Shower Transfer Goal Contact Guard Assistance Days to Meet Goals 15 Frequency of Treatment Other frequency 5x/week Treatment Plan OT Treatment Plan ADL Training,Functional Mobility,Patient/Family Education,Discharge Planning Discharge Recommendations OT Discharge SNF Rehab Recommendations Home Equipment Needs BSC, tub bench, LB dressing equipment Transportation Needs Wheelchair/Cabulance at Discharge
--- NOTE | 2024-11-26 13:12 | CM.DPC ---
DCP Cont. Reviewed EMR and team rounds for pt's medical updates. SNF rehab is being recommended, as pt can barely tolerate movement or standing at this time. Per her preference, sent referral to [facility] [place] [facility] for review. Monitoring for acceptance.
--- NOTE | 2024-11-26 14:31 | PM.PNPO.1 ---
Subjective Subjective Date Patient Seen: 11/26/24 Time Patient Seen: 10:00 Interval history: POD #1 Surgery: Short cephalomedullary nail for left intertrochanteric hip fracture 69 yo F s/p fixaiton of left intertroch fracture. Pain is controlled with oxycodone. She has ambulated with a walker today with PT. Exam Vital Signs (past 8 hours): - 11/26/24 08:00 Temperature 97.3 F L Pulse Rate 81 Respiratory Rate 12 Blood Pressure 140/77 Pulse Oximetry 97 Oxygen Delivery Method Nasal Cannula Oxygen Flow Rate 0 Narrative Exam Narrative: PE: WD/WN/NAD Sitting up in a chair. SILT s/s/t/dp/sp Fires ta/gs/ehl/fhl Objective Labs 11/26/24 04:20 11/26/24 04:20 Labs: Laboratory Results - last 24 hr 11/26/24 04:20 WBC 10.9 D RBC 4.04 Hgb 12.5 Hct 35.5 L MCV 87.9 MCH 30.9 MCHC 35.1 RDW 13.2 Plt Count 187 Neut % (Auto) 83.5 H D Lymph % (Auto) 10.5 L [place] % (Auto) 5.8 Eos % (Auto) 0.1 L Baso % (Auto) 0.1 Neut # (Auto) 9100 H Lymph # (Auto) 1100 [place] # (Auto) 600 Eos # (Auto) 0 Baso # (Auto) 0 Sodium 130 L Potassium 4.4 Chloride 101 Carbon Dioxide 26 BUN 13 Creatinine 0.70 Estimated GFR > 60 BUN/Creatinine Ratio 18.6 Glucose 123 H Calcium 8.6 PFSH Social History household members: spouse Smoking Status: Former smoker Assessment & Plan Post-op Postoperative Procedures: Procedures Operation Date: 11/25/24 11:15 Actual Procedure Side Surgeon p Intramedullary Nailing Femur Left Margaret Jo DO Postoperative day: 1 Postoperative status: doing well Postoperative plan narrative: Aspirin BID for DVT prophylaxis Weightbearing as tolerated with a walker or crutches F/u in 2 weeks for wound check - the orthopedic office will call the patient to set up an appointment. PT/OT Time Spent With Patient Time with patient: less than 15 minutes
[2024-11-26 19:00] VITALS: BP 124/84; PULSE 89; RESP 16; TEMP 36.6; O2SAT 95
--- NOTE | 2024-11-27 00:28 | PC.NURSE ---
Addendum entered by Chrystal Jenkins RN 11/27/24 04:29: BP is now 145/90 with MAP of 72. Pain level is now 4/10. Addendum entered by Chrystal Jenkins RN 11/27/24 03:58: Getting up to use bathroom and became lightheaded and nauseous. Assisted with 2 people back onto bed and eventually to BSC and then back to bed. Initial BP was 74/43 (MAP 54) so placed in [place] for 5 minutes after which her BP was 136/78 (MAP 97). No longer nauseated or dizzy. Is complaining of 8/10 left leg pain so medicated with Tylenol and will reassess pain and BP in 30 minutes before giving narcotic pain medication. Ice pack applied to leg. Original Note: Patient is alert and oriented. Breath sounds CTA with RA sat of 95%. HRR. Denied nausea. BT present and is passing flatus; last BM was 11/25. Voiding without dysuria after having catheter removed; PVR was 7cc. Is able to turn herself in bed. Up to bathroom with walker and 1 assist. Is weak in left leg and is unable to lift it more than 1 off the bed. Has impaired sensation in bilateral feet; states it feels like I'm wearing socks but sensation has been unchanged for past month. CMS is otherwise intact. Dressings to left lateral leg are intact with 2 small spots of drainage on lower dressing. Has a small bruise on her left elbow, a small open area on palm of left hand and an abrasion just below her left knee (bandaid dressing is intact). Noted red, raised area on right buttock and to right of gluteal cleft; complained of itching but was relieved by applying lotion. Complained of 8/10 left leg pain at shift change so hospitalist was informed as had taken 5mg of oxycodone at 1800 without relief so new order received for 10mg of oxycodone and order to start now so 10mg was given. Also given tylenol + Robaxin prior to receiving pain med order from MD. Wearing bilateral calf SCD's. Fall risk score is high and bed alarm is activated.
[2024-11-27] MEDS: ACETAMINOPHEN 325 MG TABLET 650 MG PO ×2 (03:49→09:26)
[2024-11-27 04:12] LABS: Add Manual Diff / Slide Review NO; Hematocrit 35.5 % (36-46); Hemoglobin 12.3 g/dL (12.0-16.0); Lymphocytes Absolute Auto 2500 /uL (1100-4500); Mean Corpuscular HGB Conc 34.7 % (30-36); Mean Corpuscular Hemoglobin 31.0 PG (26-34); Mean Corpuscular Volume 89.3 fL (80-100); Platelet Count 193 X10^3/uL (150-400)
[2024-11-27 04:25] LABS: Blood Urea Nitrogen 17 mg/dL (7-17); Calcium 8.8 mg/dL (8.4-10.2); Carbon Dioxide 28 mmol/L (22-32); Chloride 99 mmol/L (98-107); Estimated Glomerular Filt Rate > 60 mL/min (>60); Glucose 109 mg/dL (70-99); HEMOLYSIS < 15 (0-50); Potassium 4.1 mmol/L (3.4-5.1); Sodium 133 mmol/L (137-145)
[2024-11-27] MEDS: THYROID, PORK 30 MG TABLET 45 MG PO (06:10)
[2024-11-27 08:53] VITALS: BP 134/85; PULSE 97; RESP 20; TEMP 36.4; O2SAT 95
[2024-11-27 09:17] VITALS: BP 134/85; PULSE 101
[2024-11-27] MEDS: LOSARTAN 25 MG TABLET PO (09:17)
[2024-11-27] MEDS: ASPIRIN EC 81 MG TABLET PO (09:17)
[2024-11-27] MEDS: TIMOLOL 0.5% OPHTH 1 DROPS EYE-BOTH (09:22)
--- NOTE | 2024-11-27 10:25 | PM.DS.1 ---
History of Present Illness History of Present Illness Chief complaint: GLF - R hip pain, no deformities, no thinners Narrative: Summary: The patient was a 69-year-old female who had a ground level fall with subsequent hip pain. In the ED she was found to have an intertrochanteric hip fracture. S: She was comfortable with her current pain medications. She was a distant history of a right femur fracture. She also notes some degree of left hip osteoarthritis over the past several years. She wonders about the condition of the actual hip joint for her ORIF. She denies any other acute complaints and has no other active medical history other than being treated for bladder cancer. She recently moved from [place] to [place]. 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 Discharge Providers Provider Date of admission: 11/24/24 15:48 Discharge Date: 11/27/24 Consults: 11/25/24 00:31 Consult to Pharmacy Routine Comment: med rec 11/25/24 12:43 Consult to Pharmacy Routine Comment: high fall risk 11/25/24 16:54 Consult to Occupational Therapy Evaluate & Treat Comment: Weightbearing as tolerated Physician Instructions: Evaluate and treat Consult to Physical Therapy Evaluate & Treat Comment: Weigthbearing as tolerated Physician Instructions: Evaluate and Treat 11/25/24 23:34 Consult to Pharmacy Routine Comment: pt uncertain to medication list/reason. 11/26/24 16:53 Consult to Pharmacy Routine Comment: high fall risk Discharge provider: Marco Pizarro MD Summary Hospital Course Discharge Diagnosis: 1. Left intertrochanteric hip fracture (oathologic secondary to osteoporosis), active. 2. Bladder cancer, stable. Hospital Course: Patient was a 69-year-old female who had a ground level fall with a subsequent left intertrochanteric femur fracture. She underwent operative repair with an intramedullary nail. She did have significant pain and difficulty with ambulation postoperatively. She was felt to require care home facility for rehabilitation. She had no other acute complications or issues. Status at Discharge Cognitive/behavioral status at discharge: oriented Functional status at discharge: uses cane/walker Overall status at discharge: patient is progressing back to baseline Time Spent with Patient Time spent: Greater than 30 minutes Exam Vital Signs (past 8 hours): - 11/27/24 08:53 11/27/24 09:17 Temperature 97.6 F Pulse Rate 97 H 101 H Respiratory Rate 20 Blood Pressure 134/85 134/85 Pulse Oximetry 95 Oxygen Flow Rate 0 Oxygen Delivery Method Room Air Oxygen Flow Rate 0 Narrative Exam Narrative: NAD, alert and oriented. Fluent speech. Lungs are clear, normal rate and effort. Heart is regular, no murmur gallop or rub. Abdomen is soft, non distended. Extremities are free of edema. Objective Imaging Multiple studies: : Radiologist's impression: Pelvis CT: Nondisplaced mildly comminuted intra-articular fracture of the left proximal femur. Hip x-ray: Possible subtle nondisplaced intertrochanteric or subtrochanteric fracture of the left femur seen on one view only. Consider CT or MRI for further evaluation. Labs 11/27/24 03:54 11/27/24 03:54 Labs: Laboratory Results - last 24 hr 11/27/24 03:54 WBC 8.1 RBC 3.98 L Hgb 12.3 Hct 35.5 L MCV 89.3 MCH 31.0 MCHC 34.7 RDW 13.2 Plt Count 193 Neut % (Auto) 57.5 D Lymph % (Auto) 30.7 D [place] % (Auto) 8.4 Eos % (Auto) 2.6 Baso % (Auto) 0.8 Neut # (Auto) 4700 Lymph # (Auto) 2500 [place] # (Auto) 700 Eos # (Auto) 200 Baso # (Auto) 100 Sodium 133 L Potassium 4.1 Chloride 99 Carbon Dioxide 28 BUN 17 Creatinine 0.73 Estimated GFR > 60 BUN/Creatinine Ratio 23.3 H Glucose 109 H Calcium 8.8 PFSH Social History household members: spouse Smoking Status: Former smoker Discharge Assessment & Plan Assessment and Plan Assessment: 1. Left intertrochanteric hip fracture (oathologic secondary to osteoporosis), active. 2. Bladder cancer, stable. 3. Hypothyroid. Stable. Plan of Treatment: Discharge to [facility] care home facility for rehabilitation. Discharge Plan Discharge Plan Patient Disposition: SNF Transfer to: [facility] Under care of provider: SNF Provider. Provider Discharge Comment: PROCEDURE: Operative Fixation of Left Intertrochanteric Femur Fracture SURGEON: Dr Jo DATE: 11/25/24 ACTIVITY INSTRUCTIONS o You are weight bearing as tolerated to the left lower extremity with a front wheeled walker at all times. We encourage active movement of the toes and ankle every hour while awake to prevent stiffness. oYou have no hip precautions or restrictions on hip range of motion oDo not drive while taking narcotic medications and recovering from your surgery. DRESSING CARE oYou have a three simple dressings on top of your incision which was closed with carlyn. This is a waterproof dressing and so you may shower with the dressing so long as the dressing remains clean and dry to the surgical site. You may remove the dressings four days after your surgery. Do not soak the affected leg in any still water including a bathtub, hot tub or adorno water. If the carlyn are irritated by your clothing you may cover them with band-aids. Do not apply any topical creams, lotions or ointments to the incisions. POST-OPERATIVE INSTRUCTIONS oIf you notice fever, chills, night sweats, redness, excessive drainage or bleeding, a sharp increase in pain that persists after taking pain medication, pain in your calf muscles, chest pain or trouble breathing please unwrap the dressing and investigate. Then call the office with findings for further guidance. If it is after regular clinic hours, please seek care in the emergency department. oIn the rare case of any severe chest pain and trouble breathing, seek immediate care, do not delay for a call to the clinic. oUse ice to the affected extremity for 15 minutes increments as needed. Use your ice machine as discussed in your pre-operative visit. oKeep extremity elevated to the level of the heart to reduce swelling. You can use ice on top of the dressing to reduce pain and swelling of the extremity. oYou may gradually resume your normal diet if you have no nausea or vomiting oYou will follow up with your orthopedic surgeon in the [facility] 2 weeks after surgery. Our office should call your to schedule the appointment, however you can call our office at [phone] to schedule your appointment or address any questions or concerns. MEDICATIONS o Take pain medications as prescribed by the internal medicine doctor when you return home o Take one pill of 81 mg of aspirin two times daily 12 hours apart for 6 weeks for blood clot prevention. Take this medication regardless of pain. o Resume all of your normal home medications unless specified otherwise by your surgeon or the internal medicine doctor during your admission. Discharge orders & Medications Prescriptions: New methocarbamol 500 mg Tablet 500 mg PO TID PRN (Reason: Muscle Spasm) Qty: 15 0RF aspirin 81 mg Tablet,Delayed Release (Dr/Ec) 81 mg PO BID Qty: 90 0RF oxycodone 5 mg Tablet 10 mg PO Q3H PRN (Reason: Pain, Moderate (4-6)) Qty: 15 0RF thyroid (pork) [Monette Thyroid] 30 mg Tablet 45 mg PO 0600 Qty: 30 0RF Continued telmisartan 20 mg tablet 25 mg PO DAILY timolol maleate 0.5 % drops 1 drp EYE-BOTH QAM metformin 500 mg tablet 500 mg PO DAILY (DME) amour 0 .ROUTE .MEDSUPPLY Patient Comments: 45mg daily Discharge Health Status Multidrug resistant organism: No MDRO Diet/Activity/Treatments Diet: Regular Activity: WBAT Left Hip. Special Rehabilitation Services Reason for rehabilitation: Post-operative therapy Rehab type: Physical therapy and Occupational therapy Visit Report/Discharge Packet Stand Alone Forms: Patient Portal/API
--- NOTE | 2024-11-27 11:26 | PC.NURSE ---
1125: Patient discharged to [facility]. Discharge instructions given to patient, discussed importance of F/U with Ortho in 2 weeks, dressing care, and signs of worsening symptoms. Verbalized understanding. DC via WC by [facility] staff.
--- NOTE | 2024-11-27 11:40 | P.PN_ITS ---
Subjective Subjective Interval history: POD #2 Surgery: Short cephalomedullary nail for left intertrochanteric hip fracture 69 yo F s/p fixation of left intertroch fracture. Pain is controlled with oxycodone. She has ambulated with a walker with PT. SHe denies f/c/ns. She did have an increase in pain today when she got out of bed. PE: dressing intact. Sensation intact to s/s/t/dp/sp. Fires ta/gs/ehl/fhl. Exam Vital Signs (past 8 hours): - 11/27/24 08:53 11/27/24 09:17 Temperature 97.6 F Pulse Rate 97 H 101 H Respiratory Rate 20 Blood Pressure 134/85 134/85 Pulse Oximetry 95 Oxygen Flow Rate 0 Oxygen Delivery Method Room Air Oxygen Flow Rate 0 Objective Labs 11/27/24 03:54 11/27/24 03:54 Labs: Laboratory Results - last 24 hr 11/27/24 03:54 WBC 8.1 RBC 3.98 L Hgb 12.3 Hct 35.5 L MCV 89.3 MCH 31.0 MCHC 34.7 RDW 13.2 Plt Count 193 Neut % (Auto) 57.5 D Lymph % (Auto) 30.7 D [place] % (Auto) 8.4 Eos % (Auto) 2.6 Baso % (Auto) 0.8 Neut # (Auto) 4700 Lymph # (Auto) 2500 [place] # (Auto) 700 Eos # (Auto) 200 Baso # (Auto) 100 Sodium 133 L Potassium 4.1 Chloride 99 Carbon Dioxide 28 BUN 17 Creatinine 0.73 Estimated GFR > 60 BUN/Creatinine Ratio 23.3 H Glucose 109 H Calcium 8.8 PFSH Social History household members: spouse Smoking Status: Former smoker Assessment & Plan Post-op Postoperative Procedures: Procedures Operation Date: 11/25/24 11:15 Actual Procedure Side Surgeon p Intramedullary Nailing Femur Left Margaret Jo DO Postoperative day: 2 Postoperative status: doing well Postoperative plan narrative: - Aspirin BID - WBAT with walker - PT/OT - F/u in 2 weeks for removal of carlyn and wound check. Time Spent With Patient Time with patient: less than 15 minutes
== END 2024-11-27 11:28 | DRG 482 ==
LOC: ED 15:44 → AC 15:50
PROVIDERS: Orthopaedic Surgery; Admitting Provider Hospitalist; Emergency Provider Emergency Medicine; Referring Provider Emergency Medicine; Visit Provider Hospitalist
PROC: 0QS706Z Reposition Left Upper Femur with Intramedullary Internal Fixation Device, Open Approach (ICD-10-PCS; CPT 27245; principal; 2024-11-25 11:15)
DX: M80.052A Age-related osteoporosis with current pathological fracture, left femur, initial encounter for fracture (principal); C67.9 Malignant neoplasm of bladder, unspecified; M16.12 Unilateral primary osteoarthritis, left hip; G89.18 Other acute postprocedural pain; E03.9 Hypothyroidism, unspecified; Z87.891 Personal history of nicotine dependence
CPT/HCPCS: 36415; 72192; 73502; 76000; 80048; 80053; 85025; 96374; 97162; 97165; 97530; 97535; 99284; C1713; J0131; J0689; J1100; J1171; J1885; J2060; J2405; J2704; J3010; J7120

== ENCOUNTER → 2024-12-18 14:09 | Outpatient (CLI) | payer MEDICARE, OTHER, SELFPAY ==
[2024-11-25 00:20] VITALS: BMI 23.0
--- NOTE | 2024-12-18 14:11 | DI.RAD.S_ITS ---
PROCEDURE: XR DEXA AXIAL SKELETON
== END ==
LOC: RAD 14:10
PROVIDERS: PCP Student in an Organized Health Care Education/Training Program; Referring Provider Orthopaedic Surgery; Visit Provider Orthopaedic Surgery
DX: M81.0 Age-related osteoporosis without current pathological fracture (principal)
CPT/HCPCS: 77080